=== PATIENT | male | born 1960 | race American Indian/Alaskan Native ===

== ENCOUNTER 2016-10-17 05:40 | Day surgery (SDC) | payer MEDICARE, OTHER ==
[2016-10-17] MEDS ORDERED: Sodium Chloride 0.9% 10 ML Syringe FLUSH PRN (06:00)
[2016-10-17] MEDS ORDERED: Dextrose 5%-0.45% NaCl 1,000 ML IV SCH (06:00)
[2016-10-17] MEDS ORDERED: Midazolam 1 MG/ML 2 ML SDV ONE (06:15)
[2016-10-17] MEDS ORDERED: fentaNYL 100 MCG/2 ML SDV ONE (06:16)
[2016-10-17] MEDS ORDERED: fentaNYL 100 MCG/2 ML SDV IV ONE ×3 (06:53→16:58)
[2016-10-17] MEDS ORDERED: Midazolam 1 MG/ML 2 ML SDV IV ONE ×6 (06:55→16:58)
[2016-10-17 09:40] VITALS: BP 122/80
--- NOTE | 2016-10-17 10:22 | OR ---
DATE: 10/17/2016 PROCEDURE: Total colonoscopy. INSTRUMENT USED: CF-H180AL Olympus video colonoscope. PREMEDICATIONS: Fentanyl 100 mcg intravenous, Versed 4 mg intravenous. Nasal O2 cannula. The procedure was done under pulse oximetry, BP recording, and ekg monitor tech. INDICATION: The patient with Hemoccult positive stools, unexplained. Colonoscopic examination is done for detection of any polypoid lesions and removal, endoscopic hemostasis therapy if needed. DESCRIPTION OF PROCEDURE: Initial rectal exam was unremarkable. Rigid anoscopy was normal. The colonoscope was passed with ease up to the ileocecal area, photographs were taken of the normal-appearing cecum, identified by landmarks of appendiceal orifice and double-bulged ileocecal folds. No bleeding was noted from any of the visualized areas at the commencement of the examination. No stricture. No vascular ectasia. No large isolated ulcerations seen. No evidence of diffuse inflammatory bowel disease in the form of friability, contact bleeding, or ulcerations. No polyp or tumor mass identified. There was semi-solid as well as liquid stools requiring aspiration. Probing the proximal sides of folds and flexures, using adequate distention and clearing up the stool material, withdrawal of the scope was made, cecum to rectum time over 6 minutes. No bleeding was noted from any of the visualized areas at the completion of examination. IMPRESSION: Normal study. The patient tolerated the procedure well. [facility] /[id number]
--- NOTE | 2016-10-17 11:10 | LETTER ---
10/17/2016 Kyle Valenzuela MD [facility] [address] [place] [address] RE: GRAEME BRANDON : [address] Valenzuela: Mr. Graeme Brandon had colonoscopic examination done this morning and he tolerated the procedure well. I herewith send a copy of the endoscopy note and photographs for your review. He has Hemoccult positive stools and colonoscopic examination is negative for any bleeding areas. He has longstanding difficulties of heartburn and he is on Zantac long-term. He has not had upper endoscopic evaluation done in the past. He is scheduled for EGD next week. Thank you. Sincerely, [facility] /[id number]
== END 2016-10-17 09:19 | disposition home or self-care (01) ==
LOC: DL.ENDO 05:40
PROVIDERS: ATTEND Internal Medicine Gastroenterology
DX: R19.5 Other fecal abnormalities (principal); F17.210 Nicotine dependence, cigarettes, uncomplicated; I10 Essential (primary) hypertension; E78.00 Pure hypercholesterolemia, unspecified; E66.09 Other obesity due to excess calories; F32.9 Major depressive disorder, single episode, unspecified; M96.1 Postlaminectomy syndrome, not elsewhere classified; K21.9 Gastro-esophageal reflux disease without esophagitis; F10.21 Alcohol dependence, in remission; Z91.011 Allergy to milk products; Z86.73 Personal history of transient ischemic attack (TIA), and cerebral infarction without residual deficits; Z90.49 Acquired absence of other specified parts of digestive tract; Z79.899 Other long term (current) drug therapy; Z79.82 Long term (current) use of aspirin
CPT/HCPCS: 45378; J2250; J3010; J7042

== ENCOUNTER 2016-10-21 05:13 | Day surgery (SDC) | payer MEDICARE, OTHER ==
[2016-10-21] MEDS ORDERED: Dextrose 5%-0.45% NaCl 1,000 ML IV SCH (06:00)
[2016-10-21] MEDS ORDERED: Midazolam 1 MG/ML 2 ML SDV ONE (06:12)
[2016-10-21] MEDS ORDERED: fentaNYL 100 MCG/2 ML SDV ONE (06:13)
[2016-10-21] MEDS ORDERED: fentaNYL 100 MCG/2 ML SDV IV ONE ×3 (06:34→09:53)
[2016-10-21] MEDS ORDERED: Midazolam 1 MG/ML 2 ML SDV IV ONE ×3 (06:35→09:53)
--- NOTE | 2016-10-21 07:39 | OR ---
DATE: 10/21/2016 PROCEDURE: Esophagogastroduodenoscopy and multiple pinch biopsies. INSTRUMENT USED: GIF-H180 Olympus video panendoscope. PREMEDICATIONS: No oral topical anesthesia used. Fentanyl 100 mcg intravenous, Versed 2 mg intravenous. The procedure was done under pulse oximetry, BP recording and hands parter. INDICATION: The patient with persistent long-term heart burn, on acid suppressants with Hemoccult-positive stools and colonoscopy negative for bleeding areas. Esophagogastroduodenoscopy is performed for detection of any active erosive lesions, Ron esophagus and/or malignancy also under consideration, H. pylori status to be determined, endoscopic hemostasis therapy if needed. The scope was passed with ease. Adequate visualization of the esophagus was made from proximal to distal areas. No upper esophageal lesions identified. No distal esophageal stricture. No uphill or downhill esophageal varices. No Debbie-Johnson tear. No evidence of erosive esophagitis by Tift criteria. No esophageal polyp or tumor mass was identified. Z-line was seen at around 40 cm distal to the oral verge, configuration consistent with Grade 1 by ZAP classification. No proximal gastric varices noted. Gastric fundus examination by retroflexion showed no polypoid lesions. No gastric ulcer, malignant mass, or vascular ectasia identified. Some patchy erythema was noted at the gastric antral mucosa. Duodenal bulb showed no ulcer. Visualized second part of the duodenum was unremarkable. Multiple pinch biopsies were taken from the gastric antrum and proximal body and sent for PyloriTek test for H. pylori, and if negative in an hour. Tissues to be sent for histopathology. No bleeding was noted from any of the visualized areas at the completion of examination. Photographs were taken of the duodenal bulb, gastric antrum, fundus, and distal esophagus. IMPRESSION: Patchy antral gastritis. The patient tolerated the procedure well. [facility] /[id number]
[2016-10-21 09:12] VITALS: BP 114/80
--- NOTE | 2016-10-21 12:52 | LETTER ---
10/21/2016 Kyle Valenzuela MD [facility] [address] [place] [address] RE: GRAEME BRANDON : [address] Valenzuela: Mr. Graeme Brandon had esophagogastroduodenoscopy done this morning, and he tolerated the procedure well. I herewith send a copy of the endoscopy note and photographs for your review. He is recommended to take ranitidine 150 mg p.o. b.i.d. regularly. Thank you. Sincerely, [facility] /[id number]
== END 2016-10-21 08:44 | disposition home or self-care (01) ==
LOC: DL.ENDO 05:13
PROVIDERS: ATTEND Internal Medicine Gastroenterology
DX: K29.50 Unspecified chronic gastritis without bleeding (principal); F17.210 Nicotine dependence, cigarettes, uncomplicated; I10 Essential (primary) hypertension; E78.00 Pure hypercholesterolemia, unspecified; F32.9 Major depressive disorder, single episode, unspecified; K21.9 Gastro-esophageal reflux disease without esophagitis; Z79.82 Long term (current) use of aspirin; Z79.899 Other long term (current) drug therapy; Z90.49 Acquired absence of other specified parts of digestive tract
CPT/HCPCS: 43239; 87077; J2250; J3010; J7042

== ENCOUNTER 2024-11-02 09:55 | Emergency (ER) | payer OTHER ==
[2024-11-02] MEDS: Metoprolol Tartrate 5 MG/5 ML SDV IVPUSH ONE ×3 (10:13→11:20)
[2024-11-02] MEDS: Iopamidol 755 Mg/ML 100 ML Bottle IVPUSH ONE (10:28)
[2024-11-02] MEDS ORDERED: Sodium Chloride 0.9% 10 ML Syringe FLUSH PRN (10:29)
[2024-11-02 10:55] LABS: PROTHROMBIN TIME 10.3 SEC (9.0-12.0); PTT,PARTIAL THROMBOPLSTIN TIME 24.3 SEC (22.0-34.0)
[2024-11-02 10:57] LABS: ALANINE AMINOTRANSFERASE,ALT 107 U/L (16-63); ALBUMIN 3.9 g/dL (3.4-5.0); ALKALINE PHOSPHATASE 231 U/L (46-116); ANION GAP 20.4 mEq/L (7-13); ASPARTATE AMNIOTRANSFERASE,AST 112 U/L (15-37); BILIRUBIN TOTAL 2.2 mg/dL (0.2-1.0); BLOOD UREA NITROGEN,BUN 11 mg/dL (7-18); BUN/CREATININE RATIO 10.9 (No establ ref range); CALCIUM 9.4 mg/dL (8.5-10.1); CARBON DIOXIDE,CO2 24 mmol/L (21-32); CHLORIDE,CL 100 mmol/L (98-107); CREATININE 1.01 mg/dL (0.70-1.30); GLUCOSE RANDOM 154 mg/dL (70-99); MAGNESIUM 1.6 mg/dL (1.8-2.4); POTASSIUM,K 3.4 mmol/L (3.5-5.1); SODIUM,NA 141 mmol/L (136-145)
[2024-11-02 11:00] LABS: ESTIMATED GFR 84 mL/min (>=60)
[2024-11-02] MEDS: Ondansetron 4 MG/2 ML SDV IVPUSH ONE (11:00)
[2024-11-02 11:01] LABS: C-REACTIVE PROTEIN < 0.50 ng/dL (<=0.50)
[2024-11-02 11:05] LABS: LACTIC ACID 8.9 mmol/L (0.4-2.0)
[2024-11-02 11:06] LABS: BASOPHILS PERCENT AUTO 0.4 % (0.0-1.0); EOSINOPHILS PERCENT AUTO 0.2 % (1.0-3.0); HEMATOCRIT 48.7 % (40.0-54.0); HEMOGLOBIN 16.7 g/dL (14.0-18.0); LYMPHOCYTES PERCENT AUTO 29.7 % (20.5-50.1); MEAN CORPUSCULAR HEMOGLOBIN 32.4 pg (27.0-34.0); MEAN CORPUSCULAR HGB CONC 34.3 g/dL (33.0-35.0); MEAN CORPUSCULAR VOLUME 94.4 fL (80-100); MONOCYTES PERCENT AUTO 12.9 % (2-8); NEUTROPHILS PERCENT AUTO 56.8 % (42.2-75.2); PLATELET COUNT,PLT 129 10^3/uL (150-450); RED BLOOD CELL COUNT 5.16 10^6/uL (4.6-6.2); WHITE BLOOD CELL COUNT,WBC 4.8 10^3/uL (5.0-10.0)
[2024-11-02] MEDS: Heparin Sodium 5,000 Units/ML Vial IVPUSH ONE (11:20)
[2024-11-02] MEDS: Heparin Sodium/0.45% NaCl 500 ML ONE (11:29)
[2024-11-02] MEDS ORDERED: Heparin Sodium/0.45% NaCl 25,000 UNITS/500 ML BAG IV SCH (11:30)
[2024-11-02] MEDS: Ondansetron 4 MG/2 ML SDV ONE (13:08)
[2024-11-02] MEDS: Metoprolol Tartrate 5 MG/5 ML SDV ONE (13:08)
[2024-11-02] MEDS: Heparin Sodium 5,000 Units/ML Vial ONE (13:08)
[2024-11-02] MEDS: Sodium Chloride 0.9% 1,000 ML IV ONE (13:10)
[2024-11-02 13:15] VITALS: BP 164/111; PULSE 128
== END 2024-11-02 11:30 ==
LOC: DL.ED 09:55
DX: I63.9 Cerebral infarction, unspecified (principal); I48.91 Unspecified atrial fibrillation; I10 Essential (primary) hypertension; E78.00 Pure hypercholesterolemia, unspecified; Z90.49 Acquired absence of other specified parts of digestive tract; Z79.82 Long term (current) use of aspirin; Z79.899 Other long term (current) drug therapy
CPT/HCPCS: 36415; 70450; 70496; 70498; 71045; 80053; 83605; 83735; 84484; 85025; 85610; 85730; 86140; 87040; 93010; 96374; 96375; 96376; 99285; J1644; J2405; J3490; J7030; Q9967

== ENCOUNTER → 2025-05-11 | Emergency (ER) | payer OTHER | END | disposition home or self-care (01) | LOC: DL.ED 17:05 | DX: Z53.21 Procedure and treatment not carried out due to patient leaving prior to being seen by health care provider (principal) ==

== ENCOUNTER 2025-05-12 15:47 | Emergency (ER) | payer OTHER ==
[2025-05-12] MEDS ORDERED: Sodium Chloride 0.9% 10 ML Syringe FLUSH PRN (16:08)
[2025-05-12 16:19] LABS: PLATELET COUNT,PLT 106 10^3/uL (150-450); RED BLOOD CELL COUNT 4.78 10^6/uL (4.6-6.2); WHITE BLOOD CELL COUNT,WBC 6.9 10^3/uL (5.0-10.0)
[2025-05-12 16:29] LABS: BASOPHILS PERCENT AUTO 0.3 % (0.0-1.0); EOSINOPHILS PERCENT AUTO 2.0 % (1.0-3.0); LYMPHOCYTES PERCENT AUTO 35.0 % (20.5-50.1); MONOCYTES PERCENT AUTO 21.3 % (2-8); NEUTROPHILS PERCENT AUTO 41.4 % (42.2-75.2)
[2025-05-12 16:39] LABS: A/G RATIO 1.1; ALANINE AMINOTRANSFERASE,ALT 37 U/L (16-63); ASPARTATE AMNIOTRANSFERASE,AST 57 U/L (15-37); BILIRUBIN TOTAL 1.4 mg/dL (0.2-1.0); BLOOD UREA NITROGEN,BUN 23 mg/dL (7-18); CARBON DIOXIDE,CO2 29 mmol/L (21-32); CHLORIDE,CL 97 mmol/L (98-107); CREATININE 0.77 mg/dL (0.70-1.30); GLUCOSE RANDOM 98 mg/dL (70-99); POTASSIUM,K 3.0 mmol/L (3.5-5.1); PROTEIN TOTAL,TP 7.2 g/dL (6.4-8.2); SODIUM,NA 140 mmol/L (136-145)
[2025-05-12 16:42] LABS: ESTIMATED GFR 101 mL/min (>=60)
[2025-05-12 16:44] LABS: EOSINOPHILS PERCENT MAN 1 % (1-3); LYMPHOCYTES PERCENT MAN 28 % (20-50); MONOCYTES PERCENT MAN 25 % (2-8); SEG NEUTROPHILS PERCENT MAN 46 % (42-75)
[2025-05-12] MEDS: NS with KCl 40mEq 1,000 ML IV SCH (17:02)
[2025-05-12] MEDS: Potassium Chloride 10 MEQ Tab.ER PO ONE (18:42)
[2025-05-12 19:40] VITALS: PULSE 84
[2025-05-12 21:39] LABS: BLOOD UREA NITROGEN,BUN 20 mg/dL (7-18); CARBON DIOXIDE,CO2 29 mmol/L (21-32); CHLORIDE,CL 103 mmol/L (98-107); CREATININE 0.57 mg/dL (0.70-1.30); GLUCOSE RANDOM 112 mg/dL (70-99); POTASSIUM,K 3.7 mmol/L (3.5-5.1); SODIUM,NA 140 mmol/L (136-145)
[2025-05-12 21:40] LABS: ESTIMATED GFR 110 mL/min (>=60)
[2025-05-12 22:15] VITALS: BP 123/82
== END 2025-05-12 22:02 | disposition home or self-care (01) ==
LOC: DL.ED 15:47
DX: E87.6 Hypokalemia (principal); E78.00 Pure hypercholesterolemia, unspecified; I10 Essential (primary) hypertension; K21.9 Gastro-esophageal reflux disease without esophagitis; Z86.73 Personal history of transient ischemic attack (TIA), and cerebral infarction without residual deficits; Z79.82 Long term (current) use of aspirin; Z79.899 Other long term (current) drug therapy; Z90.49 Acquired absence of other specified parts of digestive tract
CPT/HCPCS: 36415; 80048; 80053; 83735; 85025; 93005; 96365; 96366; 99285-25; A9270-GY; J3480